=== PATIENT | female | born 1950 | race Caucasian/White ===

== ENCOUNTER 2016-05-19 05:01 | Inpatient (IN) | payer BC, MEDICARE ==
--- NOTE | ~2016-05-19 | HP ---
Unit #: [id number] #: [id number] Patient: KEELY MARQUEZ [id number] [address] [place], [place] [address] [id number] E MR#: [id number] NAME: KEELY MARQUEZ ROOM: Age: 66 Sex: F Admission Date: 05/19/2016 : 1950 Attending Physician: tSeve Wolf Aprn Primary Care Physician: Kesha Mattson HISTORY AND PHYSICAL CHIEF COMPLAINT Shortness of breath. HISTORY OF PRESENT ILLNESS Ms. Marquez is a 66-year-old female who has asthma who is followed by an printed circuit board designer at [facility] but has seen our group before. She is fairly well controlled on Dulera but she suffered what she felt was a sinus infection. She was treated with antibiotics and a shot of Kenalog. She had worsening chest congestion and wheezing. She did have some mucopurulent sputum but that improved with a very long course of Omnicef. There has been no documented fever. She currently is not producing sputum and there has been no chest pain or hemoptysis. She finally presented to the emergency room where she has been treated with steroids and repeated breathing treatments and she has improved but is not ready for discharge. 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 SOCIAL HISTORY A never smoker. 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 FAMILY HISTORY No definite familial lung disease. ALLERGIES She really has no allergies. Estrogens have bothered her. Erythromycin orally can cause nausea but she can take Zithromax without problems. MEDICATIONS AT HOME 1. Mobic. 2. She had been on Omnicef. 3. She has Xopenex and Combivent mini nebs which she may alternate at times. 4. Protonix. 5. Dulera two puffs twice a day. 6. Singulair. 7. Dymista nasal spray. 8. Lisinopril. REVIEW OF SYSTEMS No fever, chills. She does have some rhinitis symptoms fairly well controlled on Dymista but has a lot of remaining postnasal drip. With this acute illness, she has had a lot of sinus congestion and mucopurulent Unit #: [id number] #: [id number] Patient: KEELY MARQUEZ sputum that has improved. She does have heartburn usually controlled on Protonix. The patient denies any current heartburn. She has had some mild anorexia because of her illness but no nausea or vomiting, diarrhea, melena, hematochezia, hematuria, dysuria, focal weakness, paraesthesia, leg pain, swelling. Further review of systems negative. PHYSICAL EXAMINATION GENERAL APPEARANCE: Reveals a patient is awake and alert, in no acute distress. VITAL SIGNS: Afebrile. Pulse 92. Respiratory rate 18. Blood pressure 136/80. Height 5' tall. Weight 165 lb. HEENT: Pupils equal, round and reactive to light. Sclerae anicteric. Head: Atraumatic. Mucous membranes moist. NECK: Supple. No supraclavicular or cervical adenopathy appreciated. CHEST: Expiratory wheeze throughout all lung child. A rare crackle which basically cleared with ventilation maneuver. No consolidation. CARDIAC: A regular rate and rhythm. No pathologic murmur, rub or gallop. ABDOMEN: Soft, nontender. No hepatomegaly or rebound. EXTREMITIES: No clubbing, cyanosis or edema. No calf tenderness. SKIN: Warm and dry without rash or diaphoresis. NEUROLOGIC: Intact. No focal muscle or sensory deficits. In fact, she is walking to the restroom here in the ED. DIAGNOSTIC STUDIES LABORATORY: BUN 21, creatinine 0.8. The remainder of her CMP is normal. Her CBC is normal. There is no significant eosinophilia. No further labs have been performed. IMAGING: Chest x-ray: No definite acute infiltrates. IMPRESSION 1. Asthma exacerbation failing outpatient treatment. 2. Bronchitis/sinusitis. 3. Allergic rhinitis. 4. Immune deficiency on replacement therapy. 5. Hypertension. 6. Glucose intolerance on steroids. 7. Gastroesophageal reflux. PLAN Admission to the hospital. IV steroids. Nebulized bronchodilators. IV antibiotics for possible secondary bacterial bronchitis. She is asking for a sleeping pill. This has been discussed, the pros and cons. Dictated by Niles Narvaez M.D. Elsa TD: 05/19/2016 09:43 JOB #: [id number] Unit #: [id number] #: [id number] Patient: KEELY MARQUEZ HISTORY AND PHYSICAL Page 1 of 1 X Niles Narvaez MD HISTORY AND PHYSICAL
--- NOTE | ~2016-05-19 | CT16 ---
[facility] A Service of [facility] & [facility] RADIOLOGY TEXT RESULTS PATIENT: KEELY MARQUEZ LOCATION: A : 50 UNIT #: [id number] AGE: [address]: Niles Narvaez MD SEX: F ORDER DR: [id number] [facility] [address] [place], [place] [address] [id number] I MR#: [id number] Acc #: [id number] NAME: KEELY MARQUEZ : 1950 SEX: F STUDY DATE/TIME: UNIT: A ROOM: 216 STUDY DESCRIPTION: CT Angio Chest for PE Attending Physician: Niles Narvaez M.D. Ordering Physician: Niles Narvaez M.D. Primary Care Physician: Kesha Ayala Aprn [facility] IMAGING REPORT This report is preliminary unless electronic signature is present EXAM CT angiogram of the chest for pulmonary embolism 05/23/2016 1315 hours HISTORY 66-year-old woman with history of asthma complaining of new onset shortness of air with decrease oxygen saturation levels since 05/22/2016. Evaluate for pulmonary embolism. COMPARISON Chest film 05/19/[address] angiographic images were obtained from the thoracic inlet through the adrenal glands. 3-D sagittal and coronal reconstructions were performed. Contrast was Isovue-370 75 mL. Total exam DLP 583 mGy - cm. This CT exam was performed with one or more of the following radiation dose reduction techniques: automatic exposure control, adjustment of mA and/or kV according to patient size, and iterative reconstruction. FINDINGS Images through the thoracic inlet demonstrate enlarged left lobe of thyroid with a rim-calcified lesion measuring 3.6 x 1.9 x 3.4 cm. This is indeterminate. There are no prior studies to confirm stability. This extends into the substernal location. Correlate with clinical history, lab values and consider thyroid ultrasound. Images through the chest demonstrate diagnostic quality opacification of the pulmonary arteries which are normal in caliber. There are no filling defects to suggest the presence of pulmonary emboli. The aorta is normal. Coronary artery calcifications are present. Cardiac chambers and pericardium are normal. The esophagus is normal. STS[facility] A Service of [facility] & [facility] RADIOLOGY TEXT RESULTS PATIENT: KEELY MARQUEZ LOCATION: A 216-01 : [birth year] UNIT #: [id number] AGE: [address]: Niles Narvaez MD SEX: F ORDER DR: Lung window images demonstrate a long linear densities at both lung bases consistent with atelectasis or scar. There is no evidence of pneumonia or edema. Question is raised of mild mucous plugging in a bronchus to the medial right lower lobe on 1 or 2 images which could represent mucus or aspirated material. There is multilevel degenerative change in the thoracic spine. IMPRESSION 1. No evidence of pulmonary embolism. The aorta is normal. 2. There are long linear bibasilar densities consistent with atelectasis or scar. There are 1 or 2 images question filling defect in the medial right lower lobe bronchus which could represent mucus or aspirated material. Correlate clinically. There is no pleural effusion or pneumothorax. 3. Multilevel degenerative changes in the thoracic spine. No fracture. Dictated by... Adriana Doll M.D. THIS IS AN ELECTRONICALLY VERIFIED REPORT Adriana Doll M.D. at 05/23/2016 5:46 PM JEANNA/lizbet TD: 05/23/2016 15:52 JOB #: [id number] MEDICAL IMAGING REPORT Page 1 of 1 COPY
--- NOTE | ~2016-05-19 | CR63 ---
[facility] A Service of [facility] RADIOLOGY TEXT RESULTS PATIENT: KEELY MARQUEZ LOCATION: [facility] : 50 UNIT #: [id number] AGE: [address]: Niles Narvaez MD SEX: F ORDER DR: [id number] [facility] [address] [facility]. [place], [place] [address] [id number] E MR#: [id number] Acc #: [id number] NAME: KEELY MARQUEZ : 1950 SEX: F STUDY DATE/TIME: 05/19/2016 5:37 UNIT: [facility] ROOM: STUDY DESCRIPTION: CR Chest 2 View Attending Physician: Steve Wolf Aprn Ordering Physician: Steve Wolf Aprn Primary Care Physician: Kesha Mattson MEDICAL IMAGING REPORT This report is preliminary unless electronic signature is present EXAM Chest 2 views 05/19/2016 INDICATION Short of air for a week, asthma attack, bronchitis, hypertension. TECHNIQUE 2 view chest compared with 09/09/2012. FINDINGS Cardiac silhouette is borderline in size. The aorta is tortuous and ectatic. Vascularity is unremarkable. Lung volumes are low. There is no effusion or dense consolidation. There is new plate-like atelectasis in the mid and lower lung zone on the left. There is thoracic spondylosis. IMPRESSION 1. Borderline cardiac size with a tortuous and ectatic thoracic aorta unchanged. 2. Low lung volumes. There is bronchovascular crowding. New plate-like atelectasis in the mid and lower lung zone on the left. Dictated by... Yovanny Rivera M.D. THIS IS AN ELECTRONICALLY VERIFIED REPORT Yovanny Rivera M.D. at 05/19/2016 10:02 PM ALONSO/espinoza TD: 05/19/2016 08:11 JOB #: [id number] MEDICAL IMAGING REPORT [facility] A Service of [facility] RADIOLOGY TEXT RESULTS PATIENT: KEELY MARQUEZ LOCATION: C2 216-01 : [birth year] UNIT #: [id number] AGE: [address]: Niles Narvaez MD SEX: F ORDER DR: Page 1 of 1 COPY
--- NOTE | ~2016-05-19 | OR ---
Unit #: [id number] #: [id number] Patient: KEELY MARQUEZ [id number] [address] [place], [place] [address] [id number] I MR#: [id number] NAME: KEELY MARQUEZ ROOM: 216 Date of Procedure: 05/25/2016 Admission Date: 05/19/2016 Surgeon: Robert Tapia M.D. : 1950 Attending Physician: Niles Narvaez M.D. Primary Care Physician: Kesha Mattosn OPERATIVE REPORT PROCEDURE PERFORMED Fiberoptic bronchoscopy. INDICATIONS FOR PROCEDURE A 66-year-old white female with recurrent asthma, evidence of mucus plugging on CT scan. Rule out aspiration. PREOPERATIVE DIAGNOSIS Mucus plug. POSTOPERATIVE DIAGNOSIS Mucus plug, bronchus intermedius, right lower lobe, right middle lobe. DESCRIPTION OF PROCEDURE Procedure was done on MAC. O2 saturations remained greater than 90%. Fiberoptic bronchoscope was introduced through the oral cavity and advanced down to the level of vocal cords. Vocal cords moved normally to phonation and breathing. The vocal cords were anesthetized with 1% lidocaine. The bronchoscope was passed through the vocal cords into the trachea. Trachea appeared normal. Main mehreen was sharp. There were secretions occluding the distal mainstem. They were very thick and tenacious. The bronchus intermedius was lavaged extensively with normal saline with removal of thick tenacious mucus. The bronchus intermedius was patent. The right middle lobe had mucus plugging, which was lavaged clear; and the right lower lobe had mucus plugging, which was lavaged clear. There was abnormal friable mucosa in the right middle lobe and lower lobe. The bronchoscope was withdrawn. The right upper lobe was examined. All orifices were widely patent without endobronchial lesions. The bronchoscope was withdrawn to the main mehreen and advanced down the left mainstem into the left lower lobe and upper lobe. There were secretions in the left lower lobe, which were suctioned free. There was no mucus plugging though. The left lower lobe was widely patent. The left upper lobe was widely patent without endobronchial lesions. The bronchoscope was withdrawn to the main mehreen, and the right lower lobe and middle lobe were visualized. There was no more mucus plugging. There were erythema and some mild bleeding to the middle and lower lobes, but orifices were widely patent. The bronchoscope was removed. The patient tolerated the procedure well. She will be started on mucolytics. No foreign body was identified. Dictated by... Unit #: [id number] #: [id number] Patient: KEELY MARQUEZ Krista Fabian/chris TD: 05/25/2016 15:29 JOB #: [id number] OPERATIVE REPORT Page 1 of 1 X Robert Tapia MD X PROCEDURE OPERATIVE NOTE
--- NOTE | ~2016-05-19 | DS ---
Unit #: [id number] #: [id number] Patient: KEELY CHERY [id number] [address] [address] [id number] I MR#: [id number] NAME: KEELY CHERY ROOM: 216 Age: 66 Sex: F Admission Date: 05/19/2016 : 1950 Discharge Date: 05/26/2016 Attending Physician: Niles Narvaez M.D. Primary Care Physician: Kesha Mattson DISCHARGE SUMMARY DISCHARGE DIAGNOSES 1. Asthma exacerbation. 2. Acute hypoxemic respiratory failure. 3. Mucous plug right bronchus intermedius. 4. Hypertension. 5. Glucose intolerance on steroids. 6. History of immune deficiency on replacement. DISCHARGE MEDICATIONS 1. Combivent two puffs t.i.d. 2. Dymista two sniffs each nostril twice daily. 3. Prednisone 40 mg for three days. Decreased by 10 mg every three days until off. 4. Dulera 200/5 mcg two puffs b.i.d. 5. Lisinopril 10 mg p.o. daily. 6. Zithromax 250 mg daily x4 days. 7. Singulair 10 mg daily. 8. Mobic 15 mg daily as needed. 9. Protonix 40 mg p.o. daily. 10. Xopenex nebulizer q.i.d. as needed. FOLLOWUP 1. Dr. Narvaez one week. 2. Follow up with her allergy/immunology for her asthma and her immunodeficiency and replacement therapy. HOSPITAL COURSE Ms. Chery is a 66-year-old white female who is followed by agents' records clerk at [facility] with allergy and immunodeficiency. She was admitted by Dr. Narvaez with exacerbation of her asthma failing outpatient treatment. There is no significant eosinophilia noted. Glucose was 130. The remainder of the CMP was unremarkable. WBC count was 5,100. Hematocrit was 41. Platelet count was normal. No eosinophilia was noted. She was treated with inhaled bronchodilators, IV Solu-Medrol, covered with Zithromax. CT scan of the chest was done to rule out PE. There is no evidence of pulmonary embolism. There are long linear bibasilar densities consistent with scarring or atelectasis. On one or two images, there was a filling defect in the medial right lower lobe and also in the bronchus intermedius possibly representing mucous or foreign body. She improved with bronchodilator and steroids and antibiotics. She underwent bronchoscopy for evaluation of right-sided foreign body or mucous plugging. She was noted to have rather severe mucous plugging of her bronchus intermedius, right middle lobe and lower lobe. Those were lavaged free. Her mucosa was quite friable. Cultures were sent but are Unit #: [id number] #: [id number] Patient: KEELY CHERY pending. Cytology is also pending. There was no foreign body identified. She is currently wheeze free and room air sats are 94%. She will be discharged home on the above-mentioned medications to follow up with Dr. Narvaez in the office. She will follow up with her agents' records clerk. She is to get immunodeficiency replacement in another week or so. Dictated by... Robert Tapia M.D. ZOE/nam TD: 05/27/2016 07:56 JOB #: [id number] DISCHARGE SUMMARY Page 1 of 1 X Robert Tapia MD X DISCHARGE SUMMARY
[~2016-05-19 05:01] MED LIST: ADVAIR 100-501 EACH IH; ADVAIR INH; ALBUTEROL17 GM INH; ASTEPRO137 MCG/0. NS; DOXYCYCLINE PO; DULERA 200 MCG/13 GM IH; DUONEB 2.5-0.5 M3 ML; DYMISTA NASAL S23 GM NS; FLOVENT DISKU100 MCG IH; MELOXICAM15 MG PO; MUCINEX50 MG/BOX PO; PREDNISONE PO; PROTONIX PO; SINGULAIR PO; SPIRIVA18 MCG INH; TOPROL XL50 MG PO; TUSSIONEX PENN480 ML PO; VERAMYST10 GM NS; XOPENEX1.25 MG/3 IH; ZYRTEC10 M2 PO; [UNRECOGNIZED DRUG - OTHER] PO
[2016-05-19 07:31] LABS: BASOPHIL% 0.3 % (0-2.5); EOSINOPHIL% 0.8 % (0.0-7.0); HEMATOCRIT 41.4 % (35.0-45.0); HEMOGLOBIN 13.4 gm/dL (12.0-16.0); LYMPHOCYTE# 0.5 X10e3 (1.0-3.5); LYMPHOCYTE% 8.9 % (17.0-45.0); MEAN CELL VOLUME 91.4 FL (83-96); MEAN CORPUSCULAR HEMOGLOBIN 29.5 PG (28-34); MEAN CORPUSCULAR HGB CONC 32.2 g/dL (30-36); MEAN PLATELET VOLUME 8.5 FL (6.5-11.5); MONOCYTE# 0.2 X10e3 (0-1.0); MONOCYTE% 3.5 % (3.0-12.0); NEUTROPHIL# 4.4 X10e3 (1.5-7.1); NEUTROPHIL% 86.5 % (40-75); PLATELET COUNT 236 X10e3 (140-420); RED BLOOD COUNT 4.53 X10e (3.90-5.30); RED CELL DISTRIBUTION WIDTH 13.7 % (11.0-15.5); WHITE BLOOD COUNT 5.1 X10e3 (4.0-10.5)
[2016-05-19 07:34] LABS: DIFF IND NO
[2016-05-19 08:03] LABS: ALBUMIN SERUM 4.6 g/dL (3.5-5.0); BILIRUBIN, DIRECT 0.2 mg/dL (0.0-0.2); BILIRUBIN,INDIRECT 0.4 mg/dL (0.0-0.9); BILIRUBIN,TOTAL 0.6 mg/dL (0.2-2.0); BUN/CREATININE RATIO 26.25; CALCIUM SERUM 9.7 mg/dL (8.4-10.2); CREATININE SERUM 0.8 mg/dL (0.6-1.4); GLOM FILT RATE Estimated 76.9 mL/min (>60); POTASSIUM 4.5 mmol/L (3.5-5.1); PROTEIN TOTAL SERUM 7.7 g/dL (6.0-8.3)
[2016-05-19] MEDS ORDERED: LISINOPRIL10 MG PO (08:52)
[2016-05-19] MEDS ORDERED: MOBIC15 MG PO (08:53)
[2016-05-19] MEDS ORDERED: OMNICEF300 MG PO (08:56)
[2016-05-19] MEDS ORDERED: XOPENEX0.31 MG/3 INH (08:57)
[2016-05-19] MEDS ORDERED: COMBIVENT U/D3 M2 INH (08:58)
[2016-05-23 06:37] LABS: BUN/CREATININE RATIO 32.85; CALCIUM SERUM 8.9 mg/dL (8.4-10.2); CREATININE SERUM 0.7 mg/dL (0.6-1.4); GLOM FILT RATE Estimated 90.3 mL/min (>60); POTASSIUM 4.1 mmol/L (3.5-5.1)
[2016-05-26] MEDS ORDERED: ZITHROMAX PO (15:16)
[2016-05-26] MEDS ORDERED: PREDNISONE10 MG PO (15:16)
== END 2016-05-26 16:04 | disposition home or self-care (01) | DRG 202 ==
LOC: CED 05:01 → CEDOF 09:05 → C2A 17:37
PROVIDERS: Internal Medicine; Nurse Practitioner Family
PROC: B32SYZZ Computerized Tomography (CT Scan) of Right Pulmonary Artery using Other Contrast (ICD-10-PCS; 2016-05-23)
PROC: B32TYZZ Computerized Tomography (CT Scan) of Left Pulmonary Artery using Other Contrast (ICD-10-PCS; 2016-05-23)
PROC: B24BYZZ Ultrasonography of Heart with Aorta using Other Contrast (ICD-10-PCS; 2016-05-23)
PROC: 0B968ZX Drainage of Right Lower Lobe Bronchus, Via Natural or Artificial Opening Endoscopic, Diagnostic (ICD-10-PCS; principal; 2016-05-25 09:00)
PROC: 0B958ZX Drainage of Right Middle Lobe Bronchus, Via Natural or Artificial Opening Endoscopic, Diagnostic (ICD-10-PCS; 2016-05-25 09:00)
DX: J45.901 Unspecified asthma with (acute) exacerbation (principal); J96.01 Acute respiratory failure with hypoxia; T17.590A Other foreign object in bronchus causing asphyxiation, initial encounter; E09.9 Drug or chemical induced diabetes mellitus without complications; I10 Essential (primary) hypertension; E74.39 Other disorders of intestinal carbohydrate absorption; J32.9 Chronic sinusitis, unspecified; K21.9 Gastro-esophageal reflux disease without esophagitis; P96.81 Exposure to (parental) (environmental) tobacco smoke in the perinatal period; T38.0X5A Adverse effect of glucocorticoids and synthetic analogues, initial encounter
CPT/HCPCS: 36415; 71020; 71275; 80048; 80076; 82947; 83880; 85025; 87070; 87205; 88108; 88305; 89190; 93306; 94640; 94664; 94760; 96374; 99285; G0238; J0171; J0456; J1815; J1940; J2250; J2920; J2930; Q9967